=== PATIENT | male | born 1940 | race Caucasian/White ===

== ENCOUNTER 2017-02-21 05:30 | Outpatient (CLI) | payer MEDICARE, OTHER ==
[2017-02-22 18:06] LABS: TEST RESULT REPORT (())
== END 2017-02-21 05:31 | disposition home or self-care (01) ==
LOC: LAB.WCP 05:30
PROVIDERS: ATTEND Family Medicine
DX: R19.7 Diarrhea, unspecified (principal)
CPT/HCPCS: 36415; 81599; 83630; 87045; 87046; 87177; 87209; 87329; 87493

== ENCOUNTER 2017-11-17 08:00 | Outpatient (CLI) | payer MEDICARE, OTHER ==
[2017-11-17 13:30] LABS: ALBUMIN 4.2 g/dL (3.2-5.5); ALBUMIN/GLOBULIN RATIO 1.6 (1.0-2.2); ALKALINE PHOSPHATASE 52 IU/L (42-121); ALT ALANINE AMINOTRANSFERASE 25 IU/L (10-60); AST ASPARTATE AMINOTRANSFERASE 36 IU/L (10-42); BILIRUBIN,TOTAL 0.8 mg/dL (0.2-1.0); BUN - BLOOD UREA NITROGEN 25 mg/dL (6-20); CALCIUM 8.9 mg/dL (8.5-10.3); CARBON DIOXIDE - CO2 29 mmol/L (21-32); CHLORIDE 103 mmol/L (101-111); CHOL/HDL RATIO 3.2 (<5.0); CHOLESTEROL 153 mg/dL; CREATININE 1.7 mg/dL (0.6-1.2); GFR - MDRD 39 (>89); GLUCOSE 94 mg/dL (70-100); HDL CHOLESTEROL 48 mg/dL; LDL CHOLESTEROL,CALCULATED 87 mg/dL; LDL/HDL RATIO 1.8 (<3.6); SODIUM 138 mmol/L (135-145); TOTAL PROTEIN 6.8 g/dL (6.7-8.2); VLDL CHOLESTEROL 18 mg/dL
[2017-11-17 13:35] LABS: BASOPHILS % (AUTO) 0.9 %; EOSINOPHILS # (AUTO) 0.2 10^3/uL (0.0-0.7); EOSINOPHILS % (AUTO) 3.9 %; HGB - HEMOGLOBIN 15.4 g/dL (14.0-18.0); LYMPHOCYTES # (AUTO) 1.1 10^3/uL (1.5-3.5); LYMPHOCYTES % (AUTO) 22.7 %; MEAN CORPUSCULAR HEMOGLOBIN 29.4 pg (27.0-31.0); MEAN CORPUSCULAR HGB CONC 33.2 g/dL (32.0-36.0); MEAN CORPUSCULAR VOLUME 88.5 fL (80.0-94.0); MEAN PLATELET VOLUME 10.6 fL (7.4-11.4); MONOCYTES # (AUTO) 0.5 10^3/uL (0.0-1.0); MONOCYTES % (AUTO) 10.7 %; NEUTROPHILS # (AUTO) 2.9 10^3/uL (1.5-6.6); NEUTROPHILS % (AUTO) 61.8 %; PLT - PLATELET COUNT 171 10^3/uL (130-450); RED BLOOD COUNT 5.24 10^6/uL (4.70-6.10); RED CELL DISTRIBUTION WIDTH 13.8 % (12.0-15.0); WHITE BLOOD COUNT 4.7 x10^3/uL (4.8-10.8)
== END 2017-11-17 23:59 ==
LOC: LAB.WCP 08:00
PROVIDERS: ATTEND Family Medicine
DX: Z79.01 Long term (current) use of anticoagulants (principal); N28.9 Disorder of kidney and ureter, unspecified; I10 Essential (primary) hypertension; I48.91 Unspecified atrial fibrillation; E78.5 Hyperlipidemia, unspecified; Z12.5 Encounter for screening for malignant neoplasm of prostate
CPT/HCPCS: 36415; 80053; 80061; 84443; 85025; G0103; 83721; 84153

== ENCOUNTER 2018-10-29 08:00 | Outpatient (CLI) | payer MEDICARE, OTHER | END 2018-10-29 23:59 | disposition home or self-care (01) | LOC: LAB.WCP 08:00 | PROVIDERS: ATTEND Family Medicine | DX: I48.91 Unspecified atrial fibrillation (principal); Z79.01 Long term (current) use of anticoagulants | CPT/HCPCS: 81025 ==

== ENCOUNTER 2018-12-03 07:14 | Outpatient (CLI) | payer MEDICARE, OTHER ==
[2018-12-03 13:11] LABS: BASOPHILS # (AUTO) 0.1 10^3/uL (0.0-0.1); BASOPHILS % (AUTO) 1.7 %; EOSINOPHILS # (AUTO) 0.3 10^3/uL (0.0-0.7); EOSINOPHILS % (AUTO) 5.7 %; HGB - HEMOGLOBIN 14.8 g/dL (14.0-18.0); LYMPHOCYTES # (AUTO) 1.2 10^3/uL (1.5-3.5); MEAN CORPUSCULAR HEMOGLOBIN 29.3 pg (27.0-31.0); MEAN PLATELET VOLUME 10.4 fL (7.4-11.4); MONOCYTES # (AUTO) 0.5 10^3/uL (0.0-1.0); MONOCYTES % (AUTO) 11.5 %; NEUTROPHILS # (AUTO) 2.4 10^3/uL (1.5-6.6); NEUTROPHILS % (AUTO) 55.1 %; PLT - PLATELET COUNT 167 10^3/uL (130-450); RED BLOOD COUNT 5.04 10^6/uL (4.70-6.10); RED CELL DISTRIBUTION WIDTH 14.5 % (12.0-15.0); WHITE BLOOD COUNT 4.4 x10^3/uL (4.8-10.8)
[2018-12-03 13:39] LABS: ALBUMIN/GLOBULIN RATIO 1.5 (1.0-2.2); ALKALINE PHOSPHATASE 56 IU/L (42-121); ALT ALANINE AMINOTRANSFERASE 35 IU/L (10-60); AST ASPARTATE AMINOTRANSFERASE 38 IU/L (10-42); BILIRUBIN,TOTAL 0.9 mg/dL (0.2-1.0); BUN - BLOOD UREA NITROGEN 26 mg/dL (6-20); CALCIUM 8.8 mg/dL (8.5-10.3); CARBON DIOXIDE - CO2 28 mmol/L (21-32); CHLORIDE 105 mmol/L (101-111); CHOL/HDL RATIO 2.7 (<5.0); CHOLESTEROL 148 mg/dL; CREATININE 1.6 mg/dL (0.6-1.2); GFR - MDRD 42 (>89); GLUCOSE 96 mg/dL (70-100); HDL CHOLESTEROL 54 mg/dL; LDL CHOLESTEROL,CALCULATED 77 mg/dL; LDL/HDL RATIO 1.4 (<3.6); SODIUM 141 mmol/L (135-145); TOTAL PROTEIN 6.7 g/dL (6.7-8.2); VLDL CHOLESTEROL 17 mg/dL
[2018-12-03 13:45] LABS: PLATELET MORPHOLOGY RARE GIANT PLATELETS (NORMAL)
== END 2018-12-03 07:15 | disposition home or self-care (01) ==
LOC: LAB.WCP 07:14
PROVIDERS: ATTEND Family Medicine
DX: I10 Essential (primary) hypertension (principal); E78.5 Hyperlipidemia, unspecified
CPT/HCPCS: 36415; 80053; 80061; 83721; 85025

== ENCOUNTER 2019-06-02 08:00 | Outpatient (CLI) | payer MEDICARE, OTHER ==
[2019-06-02 19:49] LABS: CK- CREATINE KINASE 3721 IU/L (22-269); CRP - C-REACTIVE PROTEIN < 1.0 mg/dL (0-1.0)
== END 2019-06-02 23:59 | disposition home or self-care (01) ==
LOC: LAB.WCP 08:00
PROVIDERS: ATTEND Family Medicine
DX: M62.81 Muscle weakness (generalized) (principal)
CPT/HCPCS: 36415; 82550; 85651; 86140

== ENCOUNTER 2019-06-03 09:07 | Emergency (ER) | payer MEDICARE, OTHER ==
[2019-06-03 09:54] LABS: BASOPHILS % (AUTO) 0.5 %; EOSINOPHILS # (AUTO) 0.2 10^3/uL (0.0-0.7); EOSINOPHILS % (AUTO) 3.5 %; HGB - HEMOGLOBIN 16.2 g/dL (14.0-18.0); LYMPHOCYTES # (AUTO) 0.5 10^3/uL (1.5-3.5); LYMPHOCYTES % (AUTO) 7.5 %; MEAN CORPUSCULAR HEMOGLOBIN 29.9 pg (27.0-31.0); MEAN CORPUSCULAR HGB CONC 32.5 g/dL (32.0-36.0); MEAN CORPUSCULAR VOLUME 91.9 fL (80.0-94.0); MEAN PLATELET VOLUME 10.3 fL (7.4-11.4); MONOCYTES # (AUTO) 0.8 10^3/uL (0.0-1.0); MONOCYTES % (AUTO) 12.4 %; NEUTROPHILS # (AUTO) 4.8 10^3/uL (1.5-6.6); NEUTROPHILS % (AUTO) 75.6 %; PLT - PLATELET COUNT 252 10^3/uL (130-450); RED BLOOD COUNT 5.42 10^6/uL (4.70-6.10); RED CELL DISTRIBUTION WIDTH 13.3 % (12.0-15.0); WHITE BLOOD COUNT 6.3 x10^3/uL (4.8-10.8)
[2019-06-03 10:17] LABS: CALCIUM 9.5 mg/dL (8.5-10.3); CREATININE 1.6 mg/dL (0.6-1.2)
--- NOTE | 2019-06-03 10:44 | ED Physician Documentation ---
History of Present Illness - Stated complaint Stated Complaint: IRREGULAR LABS - Chief complaint Chief Complaint: General - History obtained from History obtained from: Patient - History of Present Illness Timing: How many days ago (5-6) - Additonal information Additional information: This is an 79-year-old man who presents his complaints that he has been having some muscle aching for the past 5 to 6 days but is gotten so severe that he went to the primary care provider's office yesterday and they ordered a CK which was elevated. They told him to come to the emergency department this morning. 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 He received his first dose of a chemo infusion 3 weeks ago. He was started on some unknown immunomodulating type of pill that they had to discontinue because his blood pressure went up. The blood pressure medications because of developed a slow heart rate and he was scheduled 11 days ago to have a pacemaker placed but they did not do it because adjusting his blood pressure medicines resolved to the bradycardia. He is now being treated with lisinopril and hydrochlorothiazide. Patient complains that he has had some cough that increasing. He has had some urinary frequency. Denies shortness of breath or edema. No nausea vomiting or diarrhea. He denies dizziness or chest pain. He does have a history of A. fib. Patient is due for a second round of his chemotherapy tomorrow. Review of Systems Constitutional: denies: Fever Nose: denies: Congestion Throat: denies: Sore throat Cardiac: denies: Chest pain / pressure, Palpitations, Pedal edema Respiratory: reports: Cough. denies: Dyspnea GI: denies: Nausea, Diarrhea : reports: Frequency. denies: Dysuria Skin: denies: Rash Endocrine: reports: Polyuria, Other (No diabetes) PD PAST MEDICAL HISTORY - Past Medical History Cardiovascular: Hypertension, High cholesterol, Atrial fibrillation Respiratory: Sleep apnea Endocrine/Autoimmune: None GI: Colon polyps : Benign prostate hypertrophy, Other HEENT: Chronic hearing loss Psych: None Musculoskeletal: None Derm: Eczema - Past Surgical History Past Surgical History: No General: Colonoscopy HEENT: Cataracts - Present Medications Home Medications: Ambulatory Orders Medication Instructions Recorded Confirmed Atorvastatin Calcium [Lipitor] 20 mg PO DAILY 12/08/12 05/15/16 Finasteride 5 mg PO DAILY 12/08/12 05/15/16 Tamsulosin [Flomax] 0.4 mg PO ONCE 12/08/12 05/15/16 Ascorbate Calcium [Vitamin C] 500 mg PO DAILY 03/09/15 05/15/16 Multivitamin [Multivitamins] 1 each PO DAILY 03/09/15 05/15/16 Triamcinolone 0.1% Cream [Kenalog 1 applic TOP DAILY 05/15/16 05/15/16 0.1% Cream] Apixaban [Eliquis] 5 mg PO 06/03/19 06/03/19 Lisinopril 20 mg PO 06/03/19 06/03/19 hydrALAZINE [Apresoline] 50 mg PO 06/03/19 - Allergies Allergies/Adverse Reactions: Allergies Allergy/AdvReac Type Severity Reaction Status Date / Time No Known Drug Allergies Allergy Verified 06/03/19 09:14 - Social History Does the pt smoke?: No Smoking Status: Former smoker Does the pt drink ETOH?: No - Immunizations Immunizations are current?: Yes - POLST Patient has POLST: Yes POLST Status: Limited Interventions PD ED PE NORMAL - Vitals Vital signs reviewed: Yes - General General: Alert and oriented X 3, No acute distress, Well developed/nourished, Other (The patient is very hard of hearing. He is very weak and could not even pull himself upright for me to be able to listen to his lungs. He needed assistance.) - HEENT HEENT: Atraumatic - Neck Neck: Supple, no meningeal sign, No adenopathy - Cardiac Cardiac: RRR, No murmur, Strong equal pulses - Respiratory Respiratory: No respiratory distress, Clear bilaterally - Abdomen Abdomen: Normal bowel sounds, Soft, Non tender - Derm Derm: Normal color, Warm and dry, No rash - Extremities Extremities: No edema - Neuro Neuro: Alert and oriented X 3, Normal speech, Other (Other than the hearing loss no gross deficits are noted.) - Psych Psych: Normal mood, Normal affect Results - Vitals Vitals: Vital Signs - 24 hr 06/03/19 06/03/19 06/03/19 09:12 11:30 13:04 Temperature 36.5 C Heart Rate 69 62 72 Respiratory 20 18 16 Rate Blood Pressure 146/71 H 146/71 H 156/76 H O2 Saturation 96 97 97 06/03/19 06/03/19 15:17 16:05 Temperature 36.5 C Heart Rate 73 80 Respiratory 18 20 Rate Blood Pressure 162/84 H 173/92 H O2 Saturation 95 94 Oxygen O2 Source Room air - Labs Labs: Laboratory Tests 06/03/19 06/03/19 06/03/19 09:48 09:48 09:48 WBC 6.3 RBC 5.42 Hgb 16.2 Hct 49.8 MCV 91.9 MCH 29.9 MCHC 32.5 RDW 13.3 Plt Count 252 MPV 10.3 Neut # (Auto) 4.8 Lymph # (Auto) 0.5 L [place] # (Auto) 0.8 Eos # (Auto) 0.2 Baso # (Auto) 0.0 Absolute Nucleated RBC 0.00 Nucleated RBC % 0.0 Sodium 140 Potassium 5.0 Chloride 102 Carbon Dioxide 30 Anion Gap 8.0 BUN 26 H Creatinine 1.6 H Estimated GFR (MDRD) 42 L Glucose 119 H Calcium 9.5 Phosphorus 3.9 Magnesium 2.4 Total Creatine Kinase 4086 H* Urine Color Urine Clarity Urine pH Ur Specific [place] Urine Protein Urine Glucose (UA) Urine Ketones Urine Occult Blood Urine Nitrite Urine Bilirubin Urine Urobilinogen Ur Leukocyte Esterase Urine RBC Urine WBC Ur Squamous Epith Cells Urine Bacteria Ur Microscopic Review Urine Culture Comments 06/03/19 11:20 WBC RBC Hgb Hct MCV MCH MCHC RDW Plt Count MPV Neut # (Auto) Lymph # (Auto) [place] # (Auto) Eos # (Auto) Baso # (Auto) Absolute Nucleated RBC Nucleated RBC % Sodium Potassium Chloride Carbon Dioxide Anion Gap BUN Creatinine Estimated GFR (MDRD) Glucose Calcium Phosphorus Magnesium Total Creatine Kinase Urine Color DARK YELLOW Urine Clarity CLEAR Urine pH 5.5 Ur Specific [place] 1.025 Urine Protein 100 H Urine Glucose (UA) NEGATIVE Urine Ketones NEGATIVE Urine Occult Blood LARGE H Urine Nitrite NEGATIVE Urine Bilirubin NEGATIVE Urine Urobilinogen 0.2 (NORMAL) Ur Leukocyte Esterase NEGATIVE Urine RBC 0-5 Urine WBC 0-3 Ur Squamous Epith Cells RARE Squamous Urine Bacteria Rare Ur Microscopic Review INDICATED Urine Culture Comments NOT INDICATED PD MEDICAL DECISION MAKING - ED course Complexity details: reviewed old records, reviewed results, re-evaluated patient, d/w patient, d/w family, d/w computing consultant ED course: Patient CK is over 4000. His BUN is 26 creatinine 1.6 with a normal potassium and the BUN and creatinine are stable from November 2018. CBC is normal. Patient was given a liter of saline and I discussed with his oncologist Dr. Jackson at [facility]. The only culprit that I can come up with for the cause of this rhabdo is the chemotherapy at this point. Dr. Jackson requested 80 mg of prednisone orally and said that they would be happy to care for him at [facility]. I spoke with Dr. Ramirez and he is agreed to accept the patient in transfer. He will be maintained on normal saline at 250 cc an hour. Departure - Departure Disposition: 02 Transfer Acute Care Hosp Clinical Impression: Rhabdomyolysis Qualifiers: Rhabdomyolysis type: non-traumatic Qualified Code(s): M62.82 - Rhabdomyolysis Discharge Date/Time: 06/03/19 16:10
[2019-06-03 11:33] LABS: BILIRUBIN,URINE NEGATIVE (NEGATIVE); GLUCOSE, URINE (UA) NEGATIVE (NEGATIVE); KETONES,URINE (UA) NEGATIVE (NEGATIVE); LEUKOCYTE ESTERASE, URINE NEGATIVE (NEGATIVE); NITRITE,URINE NEGATIVE (NEGATIVE); OCCULT BLOOD,URINE LARGE (NEGATIVE); PH,URINE 5.5 PH (5.0-7.5); PROTEIN,URINE 100 mg/dL (NEGATIVE); UROBILINOGEN,URINE 0.2 (NORMAL) E.U./dL (NORMAL)
[2019-06-03 11:36] LABS: CLARITY,URINE CLEAR (CLEAR)
[2019-06-03 11:44] LABS: MAGNESIUM 2.4 mg/dL (1.7-2.8); PHOSPHORUS 3.9 mg/dL (2.5-4.6)
[2019-06-03 11:55] LABS: BACTERIA,URINE Rare /HPF (None Seen); RBC,URINE 0-5 /HPF (0-5); SQUAMOUS EPITHELIAL CELL,UR RARE Squamous (<= Few)
[2019-06-03] MEDS ORDERED: SODIUM CHLORIDE 0.9% 1,000 ML IV ONE ×2 (13:16)
[2019-06-03] MEDS ORDERED: predniSONE 20 MG TABLET PO STA (13:54)
[2019-06-03 16:05] VITALS: BP 173/92
== END 2019-06-03 16:10 | disposition short-term general hospital (02) ==
LOC: ED 09:07
DX: M62.82 Rhabdomyolysis (principal); I10 Essential (primary) hypertension; Z87.891 Personal history of nicotine dependence; Z79.899 Other long term (current) drug therapy
CPT/HCPCS: 36415; 80048; 81001; 82550; 83735; 84100; 85025; 96360; 99284; 99285; J7512; 81003; 87086

== ENCOUNTER 2019-06-03 16:11 | Outpatient (CLI) | payer MEDICARE, OTHER | END 2019-06-03 16:12 | disposition short-term general hospital (02) | LOC: EMS 16:11 | PROVIDERS: ATTEND Surgery | DX: M62.82 Rhabdomyolysis (principal) | CPT/HCPCS: A0425; A0429 ==

== ENCOUNTER 2019-06-23 14:07 | Outpatient (CLI) | payer MEDICARE, OTHER ==
--- NOTE | 2019-06-24 11:01 | XRAY Report ---
Reason: PLEURAL EFFUSION Procedure Date: 06/23/2019 Accession Number: [id number] / [id number] Procedure: WCP - Chest 1 View X-Ray CPT Code: 46944 Final Report FULL RESULT: EXAM: CHEST RADIOGRAPHY EXAM DATE: 06/23/2019 02:07 PM. CLINICAL HISTORY: PLEURAL EFFUSION. COMPARISON: None. TECHNIQUE: 1 view. FINDINGS: Lungs/Pleura: Low lung volumes. No focal opacities evident. No pleural effusion. No pneumothorax. Mediastinum: Borderline heart size. Mildly tortuous aorta. Other: None. IMPRESSION: No convincing acute cardiopulmonary abnormality. [facility]
== END 2019-06-23 23:59 | disposition home or self-care (01) ==
LOC: DI.WCP 14:07
PROVIDERS: ATTEND Family Medicine
DX: J90 Pleural effusion, not elsewhere classified (principal)
CPT/HCPCS: 71045